=== PATIENT | female | born 1970 | race Caucasian/White ===

== ENCOUNTER 2019-01-04 15:48 | Emergency (ER) | payer OTHER, MEDICAID, SELFPAY ==
[2019-01-04 16:21] VITALS: BP 166/110; PULSE 94; RESP 16; TEMP 36.7; O2SAT 98; BMI 31.6
--- NOTE | 2019-01-04 16:28 | DI.RAD.S_ITS ---
PROCEDURE: XR KNEE RT 3V INDICATIONS: knee pain TECHNIQUE: 3 views of the knee were acquired. COMPARISON: None. FINDINGS: Bones: No fractures or dislocations. No suspicious bony lesions. There may be early degenerative changes within the patellofemoral compartment. Soft tissues: No joint effusion. No suspicious soft tissue calcifications. IMPRESSION: No displaced right knee fractures. Dictated by: Nick Edmonds M.D. on 01/04/2019 at 15:43 Approved by: Nick Edmonds M.D. on 01/04/2019 at 15:48
[2019-01-04] MEDS: KETOROLAC 60 MG/2 ML VIAL 30 MG IM (18:54)
--- NOTE | 2019-01-04 19:50 | ED.LOWEXIN ---
HPI - Extremity Injury (Lower) <TOY Gregory - Last Filed: 01/04/19 19:55> General Chief Complaint: Extremity Injury, Lower Stated Complaint: RT KNEE PAIN, UNABLE TO MOVE IT Time Seen by Provider: 01/04/19 17:51 Source: patient Mode of arrival: wheelchair Limitations: no limitations History of Present Illness HPI Narrative: The patient is a 48-year-old female nonsmoker with history of arthritis who presents with a chief complaint of right knee pain. She states that she has chronic right knee pain related to her arthritis. She states that she was standing for 10 hours without a break at work last night and had right knee pain and swelling. She states that she took some ibuprofen at 9:00 a.m., has not had anything else. She denies any falls, any twisting injuries etc. She states she has seen an orthopedist for this knee, but never had time to follow up with him again. She has tried rest and elevation as well. She states her pain is worse when she bends her knee. She denies any redness. Related Data Previous Rx's Medication Instructions Recorded ketorolac 10 mg PO TID PRN #20 tab 01/04/19 Review of Systems <TOY Gregory - Last Filed: 01/04/19 19:55> Review of Systems Narrative: GENERAL: Denies chills, fatigue, malaise, fever, sweats. HEENT: Denies sinus pain, ear pain, sore throat, difficulty swallowing, dizziness. RESPIRATORY: Denies dyspnea, cough, wheezing, hemoptysis, sputum. CARDIOVASCULAR: Denies chest pain, palpitations, orthopnea, edema, GASTROINTESTINAL: Denies nausea, vomiting, abdominal pain, diarrhea, constipation, melena. : Denies dysuria, frequency, incontinence, hematuria, urinary retention. MUSCULOSKELETAL: See HPI SKIN: Denies rash, skin lesions, or other NEUROLOGIC: Denies weakness, headache, numbness, change in speech, confusion, seizures, incoordination. PSYCHIATRIC: No concerning psychosocial issues. 12 point review of systems is negative except for those stated above PFSH <TOY Gregory - Last Filed: 01/04/19 19:55> Medical History (Updated 01/04/19 @ 19:52 by TOY Gregory) History of arthritis (Acute) Social History Smoking Status: Never smoker Social History Smoking Status: Never smoker Exam <TOY Gregory - Last Filed: 01/04/19 19:55> Narrative Exam Narrative: GENERAL: This is a well-nourished, well-developed patient, no acute distress HEAD: Atraumatic. Normocephalic. No temporal or scalp tenderness. EYES: Pupils equal round and reactive. Extraocular motions intact. No scleral icterus. No injection or drainage. ENT: Nose without bleeding, purulent drainage or septal hematoma. Throat without erythema, tonsillar hypertrophy or exudate. Uvula midline. Airway patent. NECK: Trachea midline. No JVD or lymphadenopathy. Supple, nontender, no meningeal signs. CARDIOVASCULAR: Regular rate and rhythm without murmurs, gallops, or rubs. RESPIRATORY: No cough. No increased respiratory effort. No accessory muscle use. EXTREMITIES: Generalized pain to palpation right knee. Positive pedal pulse right foot. Patient is able to flex the knee to 90? as well as extend knee. Patient does not want laxity testing. No visual abnormality to knee. NEURO: AOx3. SKIN: No rash or erythema or ecchymosis noted on knee Initial Vital Signs Initial Vital Signs: Vital Signs Temperature 98.1 F 01/04/19 16:21 Pulse Rate 94 H 01/04/19 16:21 Respiratory Rate 16 01/04/19 16:21 Blood Pressure 166/110 H 01/04/19 16:21 Pulse Oximetry 98 01/04/19 16:21 <Susan Calloway DO - Last Filed: 01/16/19 04:48> Initial Vital Signs Initial Vital Signs: Vital Signs Temperature 98.1 F 01/04/19 16:21 Pulse Rate 94 H 01/04/19 16:21 Respiratory Rate 16 01/04/19 16:21 Blood Pressure 166/110 H 01/04/19 16:21 Pulse Oximetry 98 01/04/19 16:21 Course <TOY Gregory - Last Filed: 01/04/19 19:55> Orders Ordered: Discontinued Medications Ketorolac Tromethamine (Toradol) 30 mg IM NOW ONE Stop: 01/04/19 18:24 Last Admin: 01/04/19 18:54 Dose: 30 mg Documented by: HFARRINGTO Vital Signs Vital signs: Vital Signs - 8 hr 01/04/19 16:21 Temperature 98.1 F Pulse Rate 94 H Respiratory Rate 16 Blood Pressure 166/110 H Pulse Oximetry 98 <Susan Calloway DO - Last Filed: 01/16/19 04:48> Orders Ordered: Discontinued Medications Ketorolac Tromethamine (Toradol) 30 mg IM NOW ONE Stop: 01/04/19 18:24 Last Admin: 01/04/19 18:54 Dose: 30 mg [facility] Vital Signs Vital signs: Vital Signs - 8 hr 01/04/19 16:21 Temperature 98.1 F Pulse Rate 94 H Respiratory Rate 16 Blood Pressure 166/110 H Pulse Oximetry 98 MDM - Extremity Injury (Lower) <LOIS GregoryBC - Last Filed: 01/04/19 19:55> Imaging Data Knee x-ray: Radiologist's impression: [place] [address] XRay Report Signed Patient: Shona BARRIENTOS LMR#: [id number] : 1970Acct:[id number] Age/Sex: 48 / FDate of Service: 01/04/19 Loc: ED Accession Number: [id number] Procedure: XR knee RT 3V Ordering Provider: Susan Calloway D.O. PROCEDURE: XR KNEE RT 3V INDICATIONS: knee pain TECHNIQUE: 3 views of the knee were acquired. COMPARISON: None. FINDINGS: Bones: No fractures or dislocations. No suspicious bony lesions. There may be early degenerative changes within the patellofemoral compartment. Soft tissues: No joint effusion. No suspicious soft tissue calcifications. IMPRESSION: No displaced right knee fractures. Dictated by: Nick Edmonds M.D. on 01/04/2019 at 15:43 Approved by: Nick Edmonds M.D. on 01/04/2019 at 15:48 [facility] Narrative Medical decision making narrative: The patient is a 48-year-old female who presents with a chief complaint of knee pain, which is chronic related to arthritis. However got worse after working 10 hours yesterday. She has x-rays that show possible early degenerative changes. I discussed at length rest ice compression elevation. She improved a Toradol in the emergency department so I gave her a prescription as well as discussed do not combine with Aleve ibuprofen or any other NSAIDs. Encouraged follow-up with PCP as well as come back to the emergency department for any acute changes. Patient has no questions or concerns upon discharge. Patient was ambulating throughout her stay in the emergency department. Discharge Plan Departure Patient Disposition: Home Clinical Impression: Chronic knee pain Qualifiers: Laterality: right Qualified Code(s): M25.561 - Pain in right knee Discharge Date/Time: 01/04/19 19:56 Instructions: How To Perform RICE (Rest, Ice, Compress, Elevate), DI for Knee Pain Activity Restrictions/Additional Instructions: Your x-ray shows No acute fractures. I have given you a prescription of ketorolac. Do not combine this with ibuprofen Aleve or any other NSAIDs Please Follow up with primary care provider. Please use rest ice compression elevation. Please come back to emergency department for any acute concerns. Prescriptions: New ketorolac 10 mg tablet 10 mg PO TID PRN (Reason: pain) Qty: 20 RF: 0 Referrals: Becca Haley [Primary Care Provider] -
== END 2019-01-04 19:56 | disposition home or self-care (01) ==
PROVIDERS: Emergency Provider Nurse Practitioner Family; Family Provider Nurse Practitioner Family; PCP Nurse Practitioner Family
DX: M25.561 Pain in right knee (principal)
CPT/HCPCS: 73562; 96372; 99282; 99283; J1885

== ENCOUNTER 2020-09-21 10:23 | Emergency (ER) | payer OTHER, MEDICAID, SELFPAY ==
[2020-09-21 10:50] VITALS: BP 149/87; PULSE 102; RESP 20; TEMP 36.5; O2SAT 97; BMI 27.8
[2020-09-21 10:56] VITALS: PULSE 101; O2SAT 96
[2020-09-21 11:00] VITALS: BP 152/91; PULSE 93; O2SAT 96
[2020-09-21 11:12] LABS: Add Manual Diff / Slide Review NO; Basophils Absolute Auto 100 /uL (0-100); Basophils Percent Auto 0.5 % (0-2); Eosinophils Absolute Auto 100 /uL (0-450); Eosinophils Percent Auto 0.5 % (2-4); Hematocrit 45.6 % (36-46); Hemoglobin 15.5 g/dL (12.0-16.0); Lymphocytes Absolute Auto 1800 /uL (1100-4500); Lymphocytes Percent Auto 15.5 % (25-40); Mean Corpuscular HGB Conc 33.9 % (30-36); Mean Corpuscular Hemoglobin 29.2 PG (26-34); Mean Corpuscular Volume 86.2 fL (80-100); Monocytes Absolute Auto 600 /uL (0-900); Neutrophils Absolute Auto 9100 /uL (1500-7000); Neutrophils Percent Auto 78.5 % (50-75); Platelet Count 240 X10^3/uL (150-400); Red Blood Cell Count 5.29 X10^6/uL (4.0-5.2); Red Cell Distribution Width 12.5 % (11.6-14.8); White Blood Cell Count 11.6 X10^3/uL (4.5-11.0)
--- NOTE | 2020-09-21 11:13 | ED.GENADULT ---
HPI - General Adult General Chief complaint: Abdominal Pain Stated complaint: LOWER LT BACK PAIN, BLOODY STOOL, VOMITTING Time Seen by Provider: 09/21/20 10:52 Source: patient Mode of arrival: Family Vehicle Limitations: no limitations History of Present Illness HPI narrative: Patient is a 49-year-old female who is here for evaluation of upper abdominal discomfort and bright red blood per rectum. Patient states that she has had upper abdominal discomfort for at least the past several months if not longer. It has not changed or worsened during this time. She is not having any diarrhea or constipation or urinary symptoms. She states that yesterday she started having bright red blood per rectum. Her abdominal discomfort did seem to worsen during that time. She has not had a bowel movement today. She also had some dry heaving yesterday. Continues to have no urinary symptoms. She did have a colonoscopy approximately 6 years ago. She stated that she had a family history of early colon cancer. She was told that everything was unremarkable and was not given a specific instructions about follow-up. Related Data Previous Rx's Medication Instructions Recorded ketorolac 10 mg PO TID PRN #20 tab 01/04/19 Review of Systems Constitutional Constitutional: Denies fever(s) Cardiovascular Cardiovascular: Denies chest pain and Denies dyspnea Respiratory Respiratory: Denies dyspnea Gastrointestinal Gastrointestinal: Reports abdominal pain, Reports hematochezia, Reports diarrhea, Reports nausea and Reports vomiting Genitourinary Genitourinary: Denies dysuria Genitourinary: Denies abnormal vaginal bleeding and Denies dysuria Musculoskeletal Musculoskeletal: Reports system reviewed and no additional complaints, except as documented Integumentary/Breasts Skin/Breast: Denies rash Neurologic Neurologic: Reports system reviewed and no additional complaints, except as documented Psychiatric Psychiatric: Reports system reviewed and no additional complaints, except as documented Hematologic/Lymphatic On Anticoagulants: No Allergic/Immunologic Allergic/Immunologic: Reports system reviewed and no additional complaints, except as documented Patient History Medical History History of arthritis Social History Smoking Status: Never smoker Smoking Status: Never smoker alcohol intake frequency: holidays/special occasions only Substance Use Type: does not use Exam Initial Vital Signs Initial Vital Signs: Vital Signs Temperature 97.7 F 09/21/20 10:50 Pulse Rate 102 H 09/21/20 10:50 Respiratory Rate 20 09/21/20 10:50 Blood Pressure 149/87 H 09/21/20 10:50 Pulse Oximetry 97 09/21/20 10:50 Const General: cooperative and comfortable Limitations: mental status not altered HENMT Head: normal to inspection and normocephalic Resp Effort & Inspection: normal respiratory effort Auscultation: clear to auscultation bilaterally Cardio Rate: regular rate Rhythm: regular rhythm GI Inspection: non-distended Palpation: soft and tender (Upper abdomen) Back/Spine/Pelvis Back: No CVA tenderness Skin Lesions: no lesions Rashes: no rashes Neuro General: patient alert and patient awake Cognition: normal cognition Speech: speech normal Extrem General: normal to inspection and capillary refill normal Psych Appearance: grossly normal and well kempt Scores GCS Bar coma scale eye opening: Spontaneous Bar coma scale verbal response: Orientated Bar coma scale motor response: Obey commands Bar coma scale total score: 15 Course Orders Ordered: ED Orders 09/21/20 11:00 Complete Blood Count AUTO DIFF Stat Comprehensive Metabolic Panel Stat Lipase Stat 09/21/20 11:14 CT abdomen pelvis w con Stat Vital Signs Vital signs: Vital Signs - 8 hr 09/21/20 10:50 09/21/20 10:56 09/21/20 11:00 Temperature 97.7 F Pulse Rate 102 H 101 H 93 H Respiratory Rate 20 Blood Pressure 149/87 H 152/91 H Pulse Oximetry 97 96 96 09/21/20 11:30 09/21/20 11:44 Temperature Pulse Rate 91 H 83 Respiratory Rate Blood Pressure 137/86 163/88 H Pulse Oximetry 96 98 Medical Decision Making Lab Data Lab results reviewed: Yes I reviewed the patient's lab results. Result diagrams: 09/21/20 11:00 09/21/20 11:00 Labs: Lab Results 09/21/20 09/21/20 Range/Units 11:00 11:00 WBC 11.6 H (4.5-11.0) X10^3/uL RBC 5.29 H (4.0-5.2) X10^6/uL Hgb 15.5 (12.0-16.0) g/dL Hct 45.6 (36-46) % MCV 86.2 (80-100) fL MCH 29.2 (26-34) PG MCHC 33.9 (30-36) % RDW 12.5 (11.6-14.8) % Plt Count 240 (150-400) X10^3/uL Neut % (Auto) 78.5 H (50-75) % Lymph % (Auto) 15.5 L (25-40) % Person % (Auto) 5.0 (3-14) % Eos % (Auto) 0.5 L (2-4) % Baso % (Auto) 0.5 (0-2) % Neut # (Auto) 9100 H (1675-4861) /uL Lymph # (Auto) 1800 (9666-8427) /uL Person # (Auto) 600 (0-900) /uL Eos # (Auto) 100 (0-450) /uL Baso # (Auto) 100 (0-100) /uL Sodium 135 L (137-145) mmol/L Potassium 3.8 (3.4-5.1) mmol/L Chloride 102 (98-107) mmol/L Carbon Dioxide 23 (22-32) mmol/L BUN 9 (7-17) mg/dL Creatinine 0.40 L (0.52-1.04) mg/dL Estimated GFR > 60.0 (>60) mL/min BUN/Creatinine Ratio 22.5 H (6-22) Glucose 301 H (70-100) mg/dL Calcium 9.6 (8.4-10.2) mg/dL Total Bilirubin 1.0 (0.2-1.3) mg/dL AST 32 (14-36) IU/L ALT 27 (<35) IU/L Alkaline Phosphatase 93 (38-126) U/L Total Protein 8.3 H (6.3-8.2) g/dL Albumin 4.4 (3.5-5.0) g/dL Globulin 3.9 (1.7-4.1) g/dL Albumin/Globulin Ratio 1.1 (1.0-2.8) Lipase 63 (23-300) U/L Urine Dip Bedside Urine Glucose 1000 mg/dl Bedside Urine Bilirubin - Negative Bedside Urine Ketone ++ 40 Urine Specific [place] 1.030 Bedside Urine Occult Blood - Negative Bedside Urine pH 6.0 Bedside Urine Protein + 30 Bedside Urine Urobilinogen - Negative Bedside Urine Nitrite - Negative Bedside Urine Leukocytes - Negative Esterase Point of care testing: Urine Dip Bedside Urine Glucose 1000 mg/dl Bedside Urine Bilirubin - Negative Bedside Urine Ketone ++ 40 Urine Specific [place] 1.030 Bedside Urine Occult Blood - Negative Bedside Urine pH 6.0 Bedside Urine Protein + 30 Bedside Urine Urobilinogen - Negative Bedside Urine Nitrite - Negative Bedside Urine Leukocytes - Negative Esterase Imaging Data CT scan - abdomen/pelvis: Radiologist's Impression: [address] [id number] Scan ReportSigned Patient: Shona BARRIENTOS LMR#: [id number]: 1970Acct:[id number]/Sex: 49 / FDate of Service: 09/21/20Loc: EDAccession Number: [id number] Procedure: CT abdomen pelvis w con Ordering Provider: Gage Veloz D.O. PROCEDURE: CT ABDOMEN PELVIS W CON INDICATIONS: Left-sided abdominal pain with rectal bleeding TECHNIQUE: After the administration of intravenous contrast, 5 mm thick sections acquired from the diaphragm to the symphysis. 5 mm coronal and sagittal reformats were acquired. For radiation dose reduction, the following was used: automated exposure control, adjustment of mA and/or kV according to patient size. COMPARISON: None. FINDINGS: Image quality: Excellent. ABDOMEN: Lung bases: Lung bases are clear. Heart size is normal. Solid organs: Liver is normal in size. Heterogeneously decreased liver parenchymal density is seen, no definite discrete hepatic lesion. Gallbladder is surgically absent. Biliary system is non dilated. Pancreas enhances normally. Spleen is normal in size and enhancement. No adrenal nodules. Kidneys demonstrate normal size and enhancement, without hydronephrosis. Peritoneum and bowel: There is no bowel obstruction. No gastric or small bowel wall thickening. Appendix is identified and is within normal limits. There is circumferential wall thickening involving transverse colon, splenic flexure and descending colon with narrowing of the lumen and pericolonic fat stranding. No abscess collection. No free fluid or free air. Nodes and vessels: No retroperitoneal or mesenteric adenopathy by size criteria. Aorta and inferior vena cava are normal in size. Miscellaneous: No ventral hernias. PELVIS: Genitourinary: Bladder wall thickness is normal. Miscellaneous: No inguinal hernias or adenopathy. Bones: No suspicious bony lesions. No vertebral body compression fractures. IMPRESSION: 1. Finding is suggestive of left-sided colitis. No abscess collection. No bowel obstruction. No free fluid or free air. Normal appendix. 2. Suggestion of hepatic steatosis. No discrete hepatic lesion. Prior cholecystectomy. Dictated by: Lio Paul M.D. on 09/21/2020 at 11:53 Approved by: Lio Paul M.D. on 09/21/2020 at 12:01 MDM Narrative Medical decision making narrative: Patient has a benign abdominal exam. Her labs are unremarkable. CT scans consistent with colitis which also fits her presentation today. No indication for antibiotics. Not dehydrated. I did discuss the CT scan findings with the patient. We will discharge home and she was given strict return precautions. She expressed understanding and agreement. Discharge Plan Departure Patient Disposition: Home Clinical Impression: Colitis Instructions: DI for Colitis Activity Restrictions/Additional Instructions: I recommend that you continue to stay hydrated. I would anticipate that your symptoms are going to improve over the next 2-3 days. I recommend that you contact your primary doctor for a follow-up. Return to the emergency department for any worsening pain, fevers, inability to drink fluids or any other new or worsening symptoms. Prescriptions: No Action ketorolac 10 mg tablet 10 mg PO TID PRN (Reason: pain) Qty: 20 RF: 0 Referrals: Becca Haley ARNP [Primary Care Provider] -
[2020-09-21 11:17] LABS: Alanine Aminotransferase 27 IU/L (<35); Albumin 4.4 g/dL (3.5-5.0); Albumin Globulin Ratio 1.1 (1.0-2.8); Alkaline Phosphatase 93 U/L (38-126); Aspartate Aminotransferase 32 IU/L (14-36); BUN Creatinine Ratio 22.5 (6-22); Blood Urea Nitrogen 9 mg/dL (7-17); Calcium 9.6 mg/dL (8.4-10.2); Carbon Dioxide 23 mmol/L (22-32); Chloride 102 mmol/L (98-107); Estimated Glomerular Filt Rate > 60.0 mL/min (>60); Globulin 3.9 g/dL (1.7-4.1); Glucose 301 mg/dL (70-100); HEMOLYSIS < 15 (0-50); Lipase 63 U/L (23-300); Potassium 3.8 mmol/L (3.4-5.1); Sodium 135 mmol/L (137-145); Total Protein 8.3 g/dL (6.3-8.2)
[2020-09-21 11:30] VITALS: BP 137/86; PULSE 91; O2SAT 96
[2020-09-21 11:44] VITALS: BP 163/88; PULSE 83; O2SAT 98
[2020-09-21 12:00] VITALS: BP 149/70; PULSE 84; O2SAT 96
== END 2020-09-21 12:33 | disposition home or self-care (01) ==
PROVIDERS: Emergency Provider Emergency Medicine; Family Provider Nurse Practitioner Family; PCP Nurse Practitioner Family
DX: K52.9 Noninfective gastroenteritis and colitis, unspecified (principal); R11.2 Nausea with vomiting, unspecified
CPT/HCPCS: 36415; 74177; 80053; 81003; 83690; 85025; 99284; Q9967

== ENCOUNTER → 2021-01-24 09:17 | Outpatient (CLI) | payer OTHER, SELFPAY ==
[2021-01-24 10:25] LABS: Add Manual Diff / Slide Review NO; Basophils Absolute Auto 0 /uL (0-100); Basophils Percent Auto 0.8 % (0-2); Eosinophils Absolute Auto 100 /uL (0-450); Eosinophils Percent Auto 1.8 % (2-4); Hematocrit 42.7 % (36-46); Hemoglobin 14.6 g/dL (12.0-16.0); Lymphocytes Absolute Auto 1800 /uL (1100-4500); Lymphocytes Percent Auto 28.3 % (25-40); Mean Corpuscular HGB Conc 34.3 % (30-36); Mean Corpuscular Hemoglobin 29.6 PG (26-34); Mean Corpuscular Volume 86.4 fL (80-100); Monocytes Absolute Auto 400 /uL (0-900); Neutrophils Absolute Auto 3900 /uL (1500-7000); Neutrophils Percent Auto 62.1 % (50-75); Platelet Count 243 X10^3/uL (150-400); Red Blood Cell Count 4.94 X10^6/uL (4.0-5.2); Red Cell Distribution Width 12.8 % (11.6-14.8); White Blood Cell Count 6.3 X10^3/uL (4.5-11.0)
[2021-01-24 10:38] LABS: Alanine Aminotransferase 23 IU/L (<35); Albumin 4.3 g/dL (3.5-5.0); Albumin Globulin Ratio 1.4 (1.0-2.8); Alkaline Phosphatase 72 U/L (38-126); Aspartate Aminotransferase 24 IU/L (14-36); Bilirubin Total 0.6 mg/dL (0.2-1.3); Blood Urea Nitrogen 9 mg/dL (7-17); Calcium 9.5 mg/dL (8.4-10.2); Carbon Dioxide 31 mmol/L (22-32); Chloride 99 mmol/L (98-107); Estimated Glomerular Filt Rate > 60.0 mL/min (>60); Globulin 3.1 g/dL (1.7-4.1); Glucose 318 mg/dL (70-100); HEMOLYSIS < 15 (0-50); Potassium 4.3 mmol/L (3.4-5.1); Sodium 137 mmol/L (137-145); Total Protein 7.4 g/dL (6.3-8.2)
[2021-01-24 10:40] LABS: Hemoglobin A1C% w Est Avg Glu 9.9 % (4.0-6.0)
== END ==
PROVIDERS: Family Provider Nurse Practitioner Family; PCP Physician Assistant; Referring Provider Physician Assistant; Visit Provider Physician Assistant
DX: E11.9 Type 2 diabetes mellitus without complications (principal); R63.4 Abnormal weight loss
CPT/HCPCS: 36415; 80053; 83036; 85025

== ENCOUNTER → 2021-01-30 08:54 | Outpatient (CLI) | payer OTHER, SELFPAY ==
--- NOTE | 2021-01-30 | DI.CT.S_ITS ---
PROCEDURE: CT ABDOMEN PELVIS W CON INDICATIONS: Left upper quadrant pain TECHNIQUE: After the administration of oral and IV contrast, axial sections were acquired from the lung bases to the pubic symphysis. Coronal and sagittal reformats were performed. For radiation dose reduction, the following was used: automated exposure control, adjustment of mA and/or kV according to patient size. COMPARISON: Merged With [facility], CT, CT ABDOMEN PELVIS W CON, 09/21/2020, 11:30. FINDINGS: Image quality: Excellent. Lung bases: No consolidation or pleural effusion. Heart: No significant findings. ABDOMEN: Liver: Decreased attenuation, compatible with hepatic steatosis. Gallbladder: Surgically absent Biliary ducts: Unremarkable. Pancreas: Unremarkable. Spleen: Unremarkable. Adrenal Glands: Unremarkable. Kidneys and Ureters: Unremarkable. Stomach and Bowel: Stomach, small bowel loops, and colon are unremarkable. Minimal sigmoid diverticulosis. Normal appendix. Peritoneum: No abnormal intraperitoneal fluid. No free air. Ventral Wall: No hernia. Abdominal Nodes: No retroperitoneal or mesenteric adenopathy by size criteria. Vessels: Aorta and inferior vena cava are normal in size. PELVIS: Pelvic Organs: Prominent vasculature in the left pelvis, which is nonspecific can be seen in the setting of vascular congestion. 11.5 mm hypoattenuating lesion in the uterine fundus, which may reflect a fibroid. Bladder: Unremarkable. Pelvic Nodes: No enlarged lymph nodes. Miscellaneous: No inguinal hernias are seen. Bones: Unremarkable. IMPRESSION: 1. Prominent vasculature in the left pelvis, which is nonspecific but can be seen in the setting of vascular congestion. Dictated by: Samuel Brown M.D. on 01/30/2021 at 13:23 Approved by: Samuel Brown M.D. on 01/30/2021 at 13:29
== END ==
LOC: CT 08:56
PROVIDERS: Family Provider Nurse Practitioner Family; PCP Physician Assistant; Referring Provider Physician Assistant; Visit Provider Physician Assistant
DX: R10.12 Left upper quadrant pain (principal)
CPT/HCPCS: 74177